=== PATIENT | female | born 1945 | race Caucasian/White ===

== ENCOUNTER 2016-11-04 17:10 | Inpatient (IN) ==
[2016-11-04] MEDS ORDERED: 0.9 % Sodium Chloride 1,000 ML IVC ONE (18:07)
[2016-11-04] MEDS ORDERED: Ondansetron ODT 4 MG TAB.RAPDIS SL ONE (18:07)
[2016-11-04] MEDS ORDERED: Ondansetron 4 MG/2 ML VIAL IVP ONE (18:07)
[2016-11-04] MEDS ORDERED: *HR* Morphine 2 MG/ML SYRINGE IVP ONE ×2 (18:14→19:08)
--- NOTE | 2016-11-04 18:17 | Emergency Department Note ---
Disposition Clinical Impression: Abdominal pain Qualifiers: Abdominal location: right upper quadrant Qualified Code(s): R10.11 - Right upper quadrant pain Disposition: Still a Patient Condition: Fair Referrals: Khanh Alonzo MD [Primary Care Provider] - Forms: Work/School Release, ED Satisfaction Letter Abdominal Pain HPI - General Chief Complaint: ED Abdominal Pain Stated Complaint: abdominal pain/flank pain Time Seen by Provider: 11/04/16 17:55 Source: patient Mode of arrival: ambulatory Limitations: no limitations Nursing Notes Reviewed: Yes Vital Signs Reviewed: Yes - History of Present Illness HPI Narrative: 71-year-old female history of CAD, hypertension, hyperlipidemia presents for evaluation of abdominal pain, nausea vomiting. Patient states symptoms started postprandial after eating little Caesars last night. Pain is located in the right upper quadrant for 3 days nor back. It is that the pain has been persistent. Patient has several episodes of emesis which appeared yellow. Patient denies any diarrhea or constipation. Patient did not take any medicine prior to arrival. Denies any chest pain first of breath. No fevers. Patient reports that she still has her gallbladder and appendix. No other symptoms. Pt Subjective Complaint: abdominal pain Onset (ago): hour(s) Consistency: intermittent Location: RUQ Pain Scale: 8 - Related Data Home Medications Medication Instructions Recorded Confirmed Aspirin 81 mg PO DAILY 03/16/15 03/16/15 Ezetimibe [Zetia] 10 mg PO 03/16/15 03/16/15 Isosorbide DInitrate [Isosorbide 20 mg PO 03/16/15 03/16/15 Dinitrate] Metoprolol [Lopressor] 100 mg PO BID 03/16/15 03/16/15 Allergies Allergy/AdvReac Type Severity Reaction Status Date / Time No Known Allergies Allergy Verified 11/04/16 17:26 All systems ED: reviewed and negative except as stated. Constitutional: Reports: as per HPI. Denies: fever Eyes: Reports: as per HPI ENT ED: Reports: as per HPI Cardiovascular: Reports: as per HPI. Denies: chest pain, palpitations Respiratory: Reports: as per HPI. Denies: dyspnea Gastrointestinal: Reports: as per HPI, abdominal pain, nausea, vomiting. Denies : diarrhea, constipation Genitourinary: Reports: as per HPI Musculoskeletal: Reports: as per HPI Integumentary: Reports: as per HPI Neurological: Reports: as per HPI Psychiatric: Reports: as per HPI Endocrine: Reports: as per HPI Hematological/Lymphatic: Reports: as per HPI Abdominal Pain PMH - Past Medical History Medical history: Reports: CHF, COPD, coronary artery disease, hyperlipidemia, hypertension, kidney stones, peripheral artery disease Female Surgical History: Reports: angioplasty/stent, knee replacement STAKE DRIVER history: Reports: no STAKE DRIVER history Psychiatric history: Reports: no psych history - Social History Smoking status: Never smoker Alcohol use: Reports: none Drug use: Reports: none Physical Exam - General Limitations: no limitations General appearance: alert, in no apparent distress, obese, other (Appears to be dry heaving.) - Head Head exam: atraumatic, normocephalic, normal inspection - Eye Eye exam: Present: normal appearance, EOMI - ENT ENT exam: normal exam, mucous membranes moist - Neck Neck exam: Present: normal inspection, trachea midline - Chest Chest inspection: Present: normal inspection. Absent: symmetric chest wall rise - Respiratory Respiratory exam: Present: normal lung sounds bilaterally. Absent: respiratory distress - Cardiovascular Cardiovascular exam: Present: regular rate, normal rhythm - Abdominal Exam Abdominal exam: Present: soft, tenderness (Moderate tenderness in the right upper quadrant.). Absent: distention, guarding, rebound - Extremities Exam Extremities exam: Present: normal inspection. Absent: pedal edema - Back Exam Back exam: Present: normal inspection. Absent: CVA tenderness (R), CVA tenderness (L) - Neurological Exam Neurological exam: Present: alert, oriented X3 - Skin Skin exam: Present: warm, dry, intact, normal color Course Course Narrative: Patient seen and examined upon arrival. Patient appears to be uncomfortable with active emesis. Patient states that symptoms started after her little Caes[employer] yesterday. Patient will get basic lab work including a lipase, troponin. Patient also get an EKG. Patient will get a CT scan pelvis without contrast. Symptomatically with IV fluids, antiemetics as well as morphine. Patient states that she is lightly with medications and will gradually titrate the pain medicine. - Reevaluation(s) Reevaluation #1: Patient will be signed out to the oncoming provider. Time: 18:50 Vital Signs Temperature 97.8 F 11/04/16 17:22 Pulse Rate 63 11/04/16 17:22 Respiratory Rate 16 11/04/16 17:22 Blood Pressure 173/73 11/04/16 17:22 O2 Sat by Pulse Oximetry 94 11/04/16 17:22 Temperature 97.8 F 11/04/16 17:22 Pulse Rate 63 11/04/16 18:12 Respiratory Rate 16 11/04/16 18:12 Blood Pressure 173/73 11/04/16 18:12 O2 Sat by Pulse Oximetry 94 11/04/16 18:12 Oxygen Delivery Oxygen Delivery Room Air Abdominal Pain - Lab Data Result diagrams: 11/04/16 18:34 11/04/16 18:34 Lab Results 11/04/16 11/04/16 11/04/16 Range/Units 18:20 18:34 18:34 WBC 9.9 (4.3-11.1) K/mcL RBC 4.66 (3.82-4.97) M/mcL Hgb 14.0 (11.5-15.4) g/dL Hct 41.8 (35.3-44.9) % MCV 89.7 (83.0-100.0) fL MCH 30.0 (28.0-33.3) pg MCHC 33.5 (31.6-35.5) g/dL RDW 13.0 (11.5-14.5) % Plt Count 176 (140-400) K/mcL MPV 9.7 (9.4-12.4) fL Immature Gran % 0.4 (0-4) % Seg Neutrophils % 79.0 % Lymphocytes % 13.9 % Monocytes % 5.9 % Eosinophils % 0.3 % Basophils % 0.5 % Neutrophils # 7.8 (1.6-8.9) K/mcL Lymphocytes # 1.4 (0.6-4.6) K/mcL Monocytes # 0.6 (0.0-1.3) K/mcL Eosinophils # 0.0 (0.0-0.6) K/mcL Basophils # 0.1 (0.0-0.2) K/mcL Immature Plt Fraction 3.5 (1.1-6.1) % Sodium 136 (136-145) mEq/L Potassium 4.0 (3.5-4.5) mEq/L Chloride 99 (98-109) mEq/L Carbon Dioxide 26 (19-29) mEq/L BUN 15 (7-20) mg/dL Creatinine 1.07 (0.57-1.11) mg/dL Est GFR ( Amer) > 60 (> 60) Est GFR (Non-Af Amer) 50 L (> 60) BUN/Creatinine Ratio 14 (6-26) Glucose 127 H (70-99) mg/dL Calculated Osmolality 284 (280-300) Lactic Acid (0.5-2.2) mmol/L Calcium 10.3 (8.6-10.8) mg/dL Total Bilirubin 0.8 (0.2-1.2) mg/dL Direct Bilirubin 0.3 (0.0-0.5) mg/dL Indirect Bilirubin 0.5 (0.0-1.2) mg/dL AST 19 (5-34) Units/L ALT 15 (0-55) Units/L Alkaline Phosphatase 126 (38-126) Units/L Troponin I (0-0.03) ng/mL Serum Total Protein 7.6 (6.0-8.3) g/dL Albumin 3.7 (3.5-5.0) g/dL Globulin 3.9 H (2.4-3.5) g/dL Albumin/Globulin Ratio 0.9 L (1.1-2.2) Lipase 37 (8-78) Units/L Urine Color Yellow (Yellow) Urine Clarity Cloudy A (Clear) Urine pH 7.5 (5.0-8.0) pH Units Ur Specific [place] 1.026 H (1.010-1.025) Urine Protein Trace (Neg-Trace) mg/dL Urine Glucose (UA) Normal (Normal) mg/dL Urine Ketones Trace H (Negative) mg/dL Urine Blood Negative (Negative) Urine Nitrite Negative (Negative) Urine Bilirubin Negative (Negative) Urine Urobilinogen Normal (Normal) mg/dL Ur Leukocyte Esterase Negative (Negative) Urine Microscopic RBC 0-3 (0-3) per hpf Urine Microscopic WBC 0-3 (0-3) per hpf Ur Squamous Epith Cells Many H (None-Few) per lpf Urine Bacteria Moderate H (None-Few) per hpf Hyaline Casts None Seen (None-Few) per lpf Ur Culture Indicated? NO (NO) 11/04/16 11/04/16 Range/Units 18:34 18:34 WBC (4.3-11.1) K/mcL RBC (3.82-4.97) M/mcL Hgb (11.5-15.4) g/dL Hct (35.3-44.9) % MCV (83.0-100.0) fL MCH (28.0-33.3) pg MCHC (31.6-35.5) g/dL RDW (11.5-14.5) % Plt Count (140-400) K/mcL MPV (9.4-12.4) fL Immature Gran % (0-4) % Seg Neutrophils % % Lymphocytes % % Monocytes % % Eosinophils % % Basophils % % Neutrophils # (1.6-8.9) K/mcL Lymphocytes # (0.6-4.6) K/mcL Monocytes # (0.0-1.3) K/mcL Eosinophils # (0.0-0.6) K/mcL Basophils # (0.0-0.2) K/mcL Immature Plt Fraction (1.1-6.1) % Sodium (136-145) mEq/L Potassium (3.5-4.5) mEq/L Chloride (98-109) mEq/L Carbon Dioxide (19-29) mEq/L BUN (7-20) mg/dL Creatinine (0.57-1.11) mg/dL Est GFR ( Amer) (> 60) Est GFR (Non-Af Amer) (> 60) BUN/Creatinine Ratio (6-26) Glucose (70-99) mg/dL Calculated Osmolality (280-300) Lactic Acid 2.1 (0.5-2.2) mmol/L Calcium (8.6-10.8) mg/dL Total Bilirubin (0.2-1.2) mg/dL Direct Bilirubin (0.0-0.5) mg/dL Indirect Bilirubin (0.0-1.2) mg/dL AST (5-34) Units/L ALT (0-55) Units/L Alkaline Phosphatase (38-126) Units/L Troponin I 0.00 (0-0.03) ng/mL Serum Total Protein (6.0-8.3) g/dL Albumin (3.5-5.0) g/dL Globulin (2.4-3.5) g/dL Albumin/Globulin Ratio (1.1-2.2) Lipase (8-78) Units/L Urine Color (Yellow) Urine Clarity (Clear) Urine pH (5.0-8.0) pH Units Ur Specific [place] (1.010-1.025) Urine Protein (Neg-Trace) mg/dL Urine Glucose (UA) (Normal) mg/dL Urine Ketones (Negative) mg/dL Urine Blood (Negative) Urine Nitrite (Negative) Urine Bilirubin (Negative) Urine Urobilinogen (Normal) mg/dL Ur Leukocyte Esterase (Negative) Urine Microscopic RBC (0-3) per hpf Urine Microscopic WBC (0-3) per hpf Ur Squamous Epith Cells (None-Few) per lpf Urine Bacteria (None-Few) per hpf Hyaline Casts (None-Few) per lpf Ur Culture Indicated? (NO) - EKG Data EKG attestation: Yes I reviewed and interpreted this EKG. EKG shows normal: sinus rhythm Rate: normal Rhythm: NSR T wave inversions noted in: v1 Ectopy: PVC Interpretation: no acute changes, nonspecific ST-T wave changes Giovanna - Giovanna Situation: Demographics Background: Presenting Complaint Assessment: Vital Signs, Course and respsone to treatment, Patient/Family Expectation Recommendation: Barrier(s) to disposition, Recommendation based on pending studies, treatments, or consults Giovanna Report Given to: Dr. Lydia Heredia Repor Time: 18:50 Attestation Statement - Attestation Attestation: I examined this patient and my medical decision-making was reviewed with the CENTER DIRECTOR/PA/Advanced Practice Nurse/Resident Physician. I agree with the documented findings, disposition and treatment plan as described except to the extent set forth below. A pappas to ED with right upper quadrant abdominal pain. Onset around midnight. Patient states she ate pizza last night. States normally she does not eat greasy food. Concern for gallbladder issue. Nausea and vomiting as well. No fever. On exam she is in no distress with right upper quadrant tenderness. Plan. Labs CT. Pain control and nausea meds. Will be signed out to shift supervisor rn.
[2016-11-04 18:34] LABS: Bilirubin,Urine Negative (Negative); Blood,Urine Negative (Negative); Clarity,Urine Cloudy (Clear); Color,Urine Yellow (Yellow); Glucose,Urine (UA) Normal (Normal); Ketones,Urine Trace mg/dL (Negative); Leukocyte Esterase,Urine Negative (Negative); Nitrite,Urine Negative (Negative); PH,Urine 7.5 pH Units (5.0-8.0); Protein,Urine Trace mg/dL (Neg-Trace); Specific Gravity,Urine 1.026 (1.010-1.025); Urobilinogen,Urine Normal (Normal)
[2016-11-04 18:35] LABS: Bacteria,Urine Moderate per hpf (None-Few); Hyaline Casts,Urine None Seen per lpf (None-Few); RBC,Urine 0-3 per hpf (0-3); Squamous Epithelial Cell,Urine Many per lpf (None-Few); WBC,Urine 0-3 per hpf (0-3)
[2016-11-04 18:43] LABS: Basophils # 0.1 K/mcL (0.0-0.2); Basophils % 0.5 %; Eosinophils % 0.3 %; Hematocrit 41.8 % (35.3-44.9); Immature Granulocytes % 0.4 % (0-4); Immature Platelets 3.5 % (1.1-6.1); Lymphocytes # 1.4 K/mcL (0.6-4.6); Lymphocytes % 13.9 %; Mean Corpuscular HGB Conc 33.5 g/dL (31.6-35.5); Mean Corpuscular Volume 89.7 fL (83.0-100.0); Mean Platelet Volume 9.7 fL (9.4-12.4); Monocytes # 0.6 K/mcL (0.0-1.3); Monocytes % 5.9 %; Neutrophils # 7.8 K/mcL (1.6-8.9); Platelet Count 176 K/mcL (140-400); Red Blood Count 4.66 M/mcL (3.82-4.97)
[2016-11-04 18:58] LABS: Alanine Aminotransferase 15 Units/L (0-55); Albumin 3.7 g/dL (3.5-5.0); Albumin/Globulin Ratio 0.9 (1.1-2.2); Alkaline Phosphatase 126 Units/L (38-126); Aspartate Amino Transferase 19 Units/L (5-34); BUN/Creatinine Ratio 14 (6-26); Bilirubin,Direct 0.3 mg/dL (0.0-0.5); Bilirubin,Indirect 0.5 mg/dL (0.0-1.2); Bilirubin,Total 0.8 mg/dL (0.2-1.2); Blood Urea Nitrogen 15 mg/dL (7-20); Calcium 10.3 mg/dL (8.6-10.8); Carbon Dioxide 26 mEq/L (19-29); Chloride 99 mEq/L (98-109); Globulin 3.9 g/dL (2.4-3.5); Glucose 127 mg/dL (70-99); Lipase 37 Units/L (8-78); Osmolality,Calculated 284 (280-300); Sodium 136 mEq/L (136-145); Total Protein 7.6 g/dL (6.0-8.3); eGFR For African Americans > 60 (> 60); eGFR For Non-African Americans 50 (> 60)
--- NOTE | 2016-11-04 19:13 | Emergency Department Note ---
Disposition Clinical Impression: Acute cholecystitis Abdominal pain Qualifiers: Abdominal location: right upper quadrant Qualified Code(s): R10.11 - Right upper quadrant pain Disposition: Admitted As Inpatient Condition: Fair Referrals: Khanh Alonzo MD [Primary Care Provider] - Forms: ED Satisfaction Letter, Work/School Release Time of Disposition: 19:21 General Adult HPI - General Chief complaint: ED Abdominal Pain Stated complaint: abdominal pain/flank pain Time Seen by Provider: 11/04/16 17:55 Source: patient Mode of arrival: ambulatory Limitations: no limitations - History of Present Illness Pain Scale: 8 - Related Data Home Medications Medication Instructions Recorded Confirmed Aspirin 81 mg PO DAILY 03/16/15 03/16/15 Ezetimibe [Zetia] 10 mg PO 03/16/15 03/16/15 Isosorbide DInitrate [Isosorbide 20 mg PO 03/16/15 03/16/15 Dinitrate] Metoprolol [Lopressor] 100 mg PO BID 03/16/15 03/16/15 Allergies Allergy/AdvReac Type Severity Reaction Status Date / Time No Known Allergies Allergy Verified 11/04/16 17:26 Constitutional: Reports: as per HPI. Denies: fever Eyes: Reports: as per HPI ENT ED: Reports: as per HPI Cardiovascular: Reports: as per HPI. Denies: chest pain, palpitations Respiratory: Reports: as per HPI. Denies: dyspnea Gastrointestinal: Reports: as per HPI, abdominal pain, nausea, vomiting. Denies : diarrhea, constipation Genitourinary: Reports: as per HPI Musculoskeletal: Reports: as per HPI Integumentary: Reports: as per HPI Neurological: Reports: as per HPI Psychiatric: Reports: as per HPI Endocrine: Reports: as per HPI Hematological/Lymphatic: Reports: as per HPI Past Medical History - Past Medical History Medical history: Reports: CHF, COPD, coronary artery disease, hyperlipidemia, hypertension, kidney stones, peripheral artery disease Surgical history: Reports: coronary bypass (CABG), hysterectomy, knee replacement Psychiatric history: Reports: no psych history ORDER ANALYST history: Reports: no ORDER ANALYST history - Social History Smoking Status: Never smoker Smokeless Tobacco Status: No Alcohol use: Reports: none Drug use: Reports: none Physical Exam - General Limitations: no limitations General appearance: alert, in no apparent distress, obese, other (Appears to be dry heaving.) Course Vital Signs Temperature 97.8 F 11/04/16 17:22 Pulse Rate 63 11/04/16 17:22 Respiratory Rate 16 11/04/16 17:22 Blood Pressure 173/73 11/04/16 17:22 O2 Sat by Pulse Oximetry 94 11/04/16 17:22 Temperature 97.8 F 11/04/16 17:22 Pulse Rate 63 11/04/16 18:12 Respiratory Rate 16 11/04/16 18:12 Blood Pressure 173/73 11/04/16 18:12 O2 Sat by Pulse Oximetry 94 11/04/16 18:12 Oxygen Delivery Oxygen Delivery Room Air Medical Decision Making - Medical Records Medical records reviewed: Yes I reviewed the patient's medical records. - Lab Data Lab results reviewed: Yes I reviewed the patient's lab results. Result diagrams: 11/04/16 18:34 11/04/16 18:34 Lab Results 11/04/16 11/04/16 11/04/16 Range/Units 18:20 18:34 18:34 WBC 9.9 (4.3-11.1) K/mcL RBC 4.66 (3.82-4.97) M/mcL Hgb 14.0 (11.5-15.4) g/dL Hct 41.8 (35.3-44.9) % MCV 89.7 (83.0-100.0) fL MCH 30.0 (28.0-33.3) pg MCHC 33.5 (31.6-35.5) g/dL RDW 13.0 (11.5-14.5) % Plt Count 176 (140-400) K/mcL MPV 9.7 (9.4-12.4) fL Immature Gran % 0.4 (0-4) % Seg Neutrophils % 79.0 % Lymphocytes % 13.9 % Monocytes % 5.9 % Eosinophils % 0.3 % Basophils % 0.5 % Neutrophils # 7.8 (1.6-8.9) K/mcL Lymphocytes # 1.4 (0.6-4.6) K/mcL Monocytes # 0.6 (0.0-1.3) K/mcL Eosinophils # 0.0 (0.0-0.6) K/mcL Basophils # 0.1 (0.0-0.2) K/mcL Immature Plt Fraction 3.5 (1.1-6.1) % Sodium 136 (136-145) mEq/L Potassium 4.0 (3.5-4.5) mEq/L Chloride 99 (98-109) mEq/L Carbon Dioxide 26 (19-29) mEq/L BUN 15 (7-20) mg/dL Creatinine 1.07 (0.57-1.11) mg/dL Est GFR ( Amer) > 60 (> 60) Est GFR (Non-Af Amer) 50 L (> 60) BUN/Creatinine Ratio 14 (6-26) Glucose 127 H (70-99) mg/dL Calculated Osmolality 284 (280-300) Lactic Acid (0.5-2.2) mmol/L Calcium 10.3 (8.6-10.8) mg/dL Total Bilirubin 0.8 (0.2-1.2) mg/dL Direct Bilirubin 0.3 (0.0-0.5) mg/dL Indirect Bilirubin 0.5 (0.0-1.2) mg/dL AST 19 (5-34) Units/L ALT 15 (0-55) Units/L Alkaline Phosphatase 126 (38-126) Units/L Troponin I (0-0.03) ng/mL Serum Total Protein 7.6 (6.0-8.3) g/dL Albumin 3.7 (3.5-5.0) g/dL Globulin 3.9 H (2.4-3.5) g/dL Albumin/Globulin Ratio 0.9 L (1.1-2.2) Lipase 37 (8-78) Units/L Urine Color Yellow (Yellow) Urine Clarity Cloudy A (Clear) Urine pH 7.5 (5.0-8.0) pH Units Ur Specific [place] 1.026 H (1.010-1.025) Urine Protein Trace (Neg-Trace) mg/dL Urine Glucose (UA) Normal (Normal) mg/dL Urine Ketones Trace H (Negative) mg/dL Urine Blood Negative (Negative) Urine Nitrite Negative (Negative) Urine Bilirubin Negative (Negative) Urine Urobilinogen Normal (Normal) mg/dL Ur Leukocyte Esterase Negative (Negative) Urine Microscopic RBC 0-3 (0-3) per hpf Urine Microscopic WBC 0-3 (0-3) per hpf Ur Squamous Epith Cells Many H (None-Few) per lpf Urine Bacteria Moderate H (None-Few) per hpf Hyaline Casts None Seen (None-Few) per lpf Ur Culture Indicated? NO (NO) 11/04/16 11/04/16 Range/Units 18:34 18:34 WBC (4.3-11.1) K/mcL RBC (3.82-4.97) M/mcL Hgb (11.5-15.4) g/dL Hct (35.3-44.9) % MCV (83.0-100.0) fL MCH (28.0-33.3) pg MCHC (31.6-35.5) g/dL RDW (11.5-14.5) % Plt Count (140-400) K/mcL MPV (9.4-12.4) fL Immature Gran % (0-4) % Seg Neutrophils % % Lymphocytes % % Monocytes % % Eosinophils % % Basophils % % Neutrophils # (1.6-8.9) K/mcL Lymphocytes # (0.6-4.6) K/mcL Monocytes # (0.0-1.3) K/mcL Eosinophils # (0.0-0.6) K/mcL Basophils # (0.0-0.2) K/mcL Immature Plt Fraction (1.1-6.1) % Sodium (136-145) mEq/L Potassium (3.5-4.5) mEq/L Chloride (98-109) mEq/L Carbon Dioxide (19-29) mEq/L BUN (7-20) mg/dL Creatinine (0.57-1.11) mg/dL Est GFR ( Amer) (> 60) Est GFR (Non-Af Amer) (> 60) BUN/Creatinine Ratio (6-26) Glucose (70-99) mg/dL Calculated Osmolality (280-300) Lactic Acid 2.1 (0.5-2.2) mmol/L Calcium (8.6-10.8) mg/dL Total Bilirubin (0.2-1.2) mg/dL Direct Bilirubin (0.0-0.5) mg/dL Indirect Bilirubin (0.0-1.2) mg/dL AST (5-34) Units/L ALT (0-55) Units/L Alkaline Phosphatase (38-126) Units/L Troponin I 0.00 (0-0.03) ng/mL Serum Total Protein (6.0-8.3) g/dL Albumin (3.5-5.0) g/dL Globulin (2.4-3.5) g/dL Albumin/Globulin Ratio (1.1-2.2) Lipase (8-78) Units/L Urine Color (Yellow) Urine Clarity (Clear) Urine pH (5.0-8.0) pH Units Ur Specific [place] (1.010-1.025) Urine Protein (Neg-Trace) mg/dL Urine Glucose (UA) (Normal) mg/dL Urine Ketones (Negative) mg/dL Urine Blood (Negative) Urine Nitrite (Negative) Urine Bilirubin (Negative) Urine Urobilinogen (Normal) mg/dL Ur Leukocyte Esterase (Negative) Urine Microscopic RBC (0-3) per hpf Urine Microscopic WBC (0-3) per hpf Ur Squamous Epith Cells (None-Few) per lpf Urine Bacteria (None-Few) per hpf Hyaline Casts (None-Few) per lpf Ur Culture Indicated? (NO) - Radiology Data Radiology results reviewed: Yes I reviewed the patient's radiology results. Attestation Statement - Attestation Attestation: Care assumed from Dr. Kirkland pending labs, CT, reevaluation. Patient had presented with right upper quadrant pain after eating pizza last night. She states her pain is returning. She appears in no acute distress. Labs reviewed by me. CT shows acute cholecystitis. Call placed to Dr. Escobar, surgeon configuration analyst 19:15: Case was discussed with Dr. Escobar. The plan is to admit to the medicine service with his service to consult.
[2016-11-04 19:52] LABS: INR 1.2; Prothrombin Time 12.8 Seconds (9.4-12.1)
[2016-11-04] MEDS ORDERED: Naloxone 0.4 MG/ML INJ IVP PRN (21:35)
[2016-11-04] MEDS ORDERED: Ondansetron 4 MG/2 ML VIAL IVP PRN (21:37)
[2016-11-04] MEDS: 0.9 % Sodium Chloride 1,000 ML IVC SCH (21:49)
[2016-11-04] MEDS: *HR* HYDROmorphone (PF) 1 MG/ML SYRINGE IVP PRN (21:50)
--- NOTE | 2016-11-04 21:53 | Internal Med History&Physical ---
Date of Encounter: 11/04/16 Time of Encounter: 21:40 Assessment and Plan (1) Acute cholecystitis Current visit: Yes Status: Acute 1 patient experiencing right upper quadrant pain nose leukocytosis lactate is [address] scan suggestive cholecystitis. ER physician spoke with Dr. Escobar who will see patient in a.m. per consult 2 will continue patient nothing by mouth status 3 IV fluids overnight 4.Dilaudid for pain 5 and Zofran for nausea 6 we will give Zosyn IV (2) Coronary artery disease Current visit: No Status: Chronic 1 present patient nothing by mouth we will continue statin aspirin and beta sharona once able to take oral medications Qualifiers: Coronary Disease-Associated Artery/Lesion type: bypass graft [place] vs. transplanted heart: [place] heart Associated angina: without angina Qualified Code(s): I25.810 - Atherosclerosis of coronary artery bypass graft(s) without angina pectoris (3) Hypertension Current visit: Yes Status: Chronic 1 presently nothing by mouth we will resume home medications once able to take orals 2 monitor blood pressure goals maintain systolic less than 140 Qualifiers: Hypertension type: essential hypertension Qualified Code(s): I10 - Essential (primary) hypertension (4) COPD (chronic obstructive pulmonary disease) Current visit: No Status: Chronic 1xygen as needed titrated to maintain SPO2 greater than 92% 2 bronchodilators as needed Qualifiers: COPD type: emphysema Emphysema type: unspecified Qualified Code(s): J43.9 - Emphysema, unspecified (5) DVT prophylaxis Current visit: Yes Status: Acute sCDs, [facility] Internal Medicine - H&P: HPI Chief complaint: abd pain Admitted From: Emergency Dept Plans for Post Hospital Care: Home History of present illness: Ms. Andino is a 71 year old female past medical history of coronary artery disease with CABG hypertension hyperlipidemia COPD non-oxygen dependent. According to the patient approximately 10 PM last night she ate a pizza and 2 hours later she began to experience abdominal pain and nausea. She described the pain 8/10 constant, occurring in right upper quadrant radiating to right chest, shoulder blades as well to pelvic region. Pain was wavelike, dull peaking to a sharp pain. She states she felt like her abdomen was distended and was full of gas however she was unable to belch or pass any flatus. She denies any fevers or diarrhea shortness of breath. Prior to this incident patient was at her normal state of health She presented to the ER with the above complaints. Upon arrival patient did have several episodes of emesis that were yellow in color. Lab work was obtained there was no leukocytosis lactate was [address] scan of abdomen suggestive of cholecystitis. Patient was given pain medications and antiemetics and IV fluids ER physician did speak with Dr. Escobar requested patient be admitted to medical services and surgical consult. Presently patient appears to be in pain. She complains of right upper quadrant pain. She feels that the morphine helped but did not last very long. Upon assessment patient's abdomen is tender right upper quadrant. Lung sounds are clear heart sounds S1-S2 with no rubs, gallops or murmurs noted no lower extreme edema. She is hemodynamically stable. I reviewed this case with agrees with plan. Past Med Surg Social Fam HX - Past Medical History Medical history: CHF, COPD, coronary artery disease, hyperlipidemia, hypertension, kidney stones, peripheral artery disease Psychiatric history: no psych history - Past Surgical History Surgical History: coronary bypass (CABG), hysterectomy, knee replacement - Social History Smoking Status: Never smoker Smokeless Tobacco Status: No Alcohol use: none Drug use: none - Family History Mother Living Status: Cause of : Stroke Father Living Status: Cause of : Cancer Internal Medicine - H&P: Meds Aspirin 81 mg PO DAILY 03/16/15 [History] Ezetimibe [Zetia] 10 mg PO 03/16/15 [History] Isosorbide DInitrate [Isosorbide Dinitrate] 20 mg PO 03/16/15 [History] Metoprolol [Lopressor] 100 mg PO BID 03/16/15 [History] Allergies No Known Allergies Allergy (Verified 11/04/16 17:26) All Systems PM: A 10-system review of systems was performed and is negative for pertinent findings except as documented above in the HPI. - Constitutional Constitutional: no chills, no fever(s), no night sweats - EENT Eyes: no change in vision, no discharge, no pain, no photophobia Nose, mouth and throat: no dysphagia, no nasal discharge, no neck pain, no sore throat - Cardiovascular Cardiovascular ROS IM: no chest pain, no diaphoresis, no dyspnea, no lightheadedness, no palpitations, no syncope - Respiratory Respiratory: no cough, no dyspnea, no wheezing, no excessive phlegm production - Gastrointestinal Gastrointestinal: abdominal pain, bloating, nausea, vomiting - Genitourinary Genitourinary: no change in urinary stream, no dysuria, no flank pain, no hematuria - Musculoskeletal Musculoskeletal ROS IM: no numbness, no tingling - Integumentary Integumentary IM: no rash, no unusual bruising - Neurological Neurological ROS: no confusion, no convulsions, no focal weakness, no numbness, no tingling, no tremor(s) - Hematologic/Lymphatic Hematologic/Lymphatic: no easy bruising - Constitutional Vitals: Temp Pulse Resp BP Pulse Ox 98.3 F 61 18 155/78 93 11/04/16 20:27 11/04/16 20:27 11/04/16 20:27 11/04/16 20:27 11/04/16 20:27 General appearance: Present: A&O X 3 - Head Head exam: Present: atraumatic, normocephalic - Eye Eye exam: Present: PERRL, conjuntiva pink, sclera anicteric Pupils: Present: PERRL - Neck Neck exam general surgery: Present: supple, trachea midline. Absent: lymphadenopathy - Respiratory Respiratory exam: Present: CTAB. Absent: accessory muscle use, rales, rhonchi, wheezes - Cardiovascular Cardiovascular exam: Present: RRR, +S1, +S2. Absent: diastolic murmur, gallop, rubs, systolic murmur - GI/Abdominal GI/Abdominal exam: Present: guarding, normal bowel sounds, soft, tenderness, no peritoneal signs. Absent: distended - Extremities Exam Extremities exam: Present: warm, radial pulses palpable and symetrical. Absent : calf tenderness, cyanotic, pedal edema - Neurological Exam Neurological exam: Present: CN II-XII intact, oriented X3, no focal deficits. Absent: pronater drift, facial droop, speech deficit - Skin Skin exam: Present: dry, intact Internal Med - H&P Results - Labs CBC & Chem 7: 11/04/16 18:34 11/04/16 18:34 - Diagnostic Studies Other Images Additional comments: Abdomen/Pelvis CT 11/04/16 18:14 IMPRESSION: Inflammatory stranding is seen about the gallbladder, suggestive of cholecystitis. Material within the gallbladder lumen is of diffuse increased density, typically sludge, less commonly hemorrhage. Right upper quadrant ultrasound is suggested for further evaluation. Diverticulosis, without aletha diverticulitis. D/ / Cole Dove MD / Cole Dove MD Interpreting Provider: Cole Dove MD
[2016-11-04] MEDS ORDERED: Ipratropium/Albuterol Neb 3 ML IH PRN (22:20)
[2016-11-05] MEDS: Piperacillin/Tazobactam 3.375 GM in D5% in Water (Mini-Bag+) 100 ML IVPB SCH ×4 (00:17→23:37)
[2016-11-05] MEDS: *HR* Metoprolol 5 MG/5 ML VIAL IVP SCH ×2 (00:18→05:45)
[2016-11-05 01:07] LABS: Basophils % 0.2 %; Hematocrit 39.6 % (35.3-44.9); Immature Granulocytes % 0.2 % (0-4); Lymphocytes # 0.9 K/mcL (0.6-4.6); Mean Corpuscular HGB Conc 32.8 g/dL (31.6-35.5); Mean Corpuscular Hemoglobin 29.7 pg (28.0-33.3); Mean Corpuscular Volume 90.6 fL (83.0-100.0); Monocytes # 0.4 K/mcL (0.0-1.3); Monocytes % 4.5 %; Neutrophils # 8.3 K/mcL (1.6-8.9); Platelet Count 146 K/mcL (140-400); Red Blood Count 4.37 M/mcL (3.82-4.97); Red Cell Distribution Width 12.8 % (11.5-14.5); Segmented Neutrophils % 86.1 %
[2016-11-05 01:20] LABS: BUN/Creatinine Ratio 14 (6-26); Blood Urea Nitrogen 14 mg/dL (7-20); Calcium 9.1 mg/dL (8.6-10.8); Carbon Dioxide 25 mEq/L (19-29); Chloride 100 mEq/L (98-109); Glucose 159 mg/dL (70-99); Magnesium 1.7 mg/dL (1.6-2.6); Osmolality,Calculated 278 (280-300); Phosphorous 4.1 mg/dL (2.3-4.7); Sodium 132 mEq/L (136-145); eGFR For African Americans > 60 (> 60); eGFR For Non-African Americans 56 (> 60)
--- NOTE | 2016-11-05 03:45 | Event Note ---
Date of Encounter: 11/04/16 Time of Encounter: 22:30 Patient seen and evaluated along with [facility]; agree with the detailed history, assessment and plan in [facility]'s H&P, except to the extent set forth below- 71 year old female with no h/o- gallstones/biliary colic in the past, presents with sudden onset of RUQ abdominal pain, that started after eating a couple of pizza slices, last night. CT abdomen/pelvis shows possible cholecystitis and gall-bladder sludge. Patient seen and examined at bedside; reports right upper abdominal pain, slightly drowsy from pain meds. Awake, oriented. Abdomen- obese, soft, tenderness in RUQ with voluntary guarding Chest - S1, S2 heard; lungs are clear to auscultation B/L Labs reviewed- lactic acid WNL RUQ abdominal pain- biliary colic vs acute cholecystitis. Surgery consulted by ER, full evaluation and consult to follow. Keep NPO for now, start IV hydration and pain control with PRN IV Dilaudid. RUQ U/S to evaluate for gallstones and acute cholecystitis. Supportive care. Will start IV Zosyn empirically in anticipation of surgery. Hold ASA for now.
[2016-11-05] MEDS: *HR* HYDROmorphone (PF) 1 MG/ML SYRINGE IVP PRN ×5 (03:54→23:39)
--- NOTE | 2016-11-05 06:56 | General Surgery Consult Note ---
Date of Encounter: 11/05/16 Time of Encounter: 06:56 Assessment and Plan (1) Acute cholecystitis Current Visit: Yes Status: Acute I explained to the patient that I personally reviewed the CT scan images and I will actually review the images with radiologist due to the abnormal density of the gallbladder. I do agree with IV fluid and IV antibiotics. I think clears woudl be appropriate and if we can continue to help decrease the pain which will likely help decrease the inflammation I think it would be appropriate to consider a laparoscopic cholecystectomy within the next 24 hours. Discussed with the patient and family and they agree to the above plan. History of Present Illness Consult date: 11/05/16 Reason for consult: abdominal pain (Right upper abdominal pain) Requesting physician: Derrick Seth History of present illness: The patient is a 71-year-old female with a past medical history significant for coronary artery disease, COPD, and hypertension presents to [facility] with a 2 day history of right upper quadrant abdominal pain symptoms. She states that the pain was sharp and continuous in nature and was associated with nausea and vomiting. She states she has not had pain like this in the past and denies any diarrhea or constipation symptoms. She presented to the emergency room and a CT CT scan was performed which demonstrated fat stranding around the gallbladder consistent with acute cholecystitis. Past Med Surg Social Fam HX - Past Medical History Medical history: CHF, COPD, coronary artery disease, hyperlipidemia, hypertension, kidney stones, peripheral artery disease Psychiatric history: no psych history - Past Surgical History Surgical History: coronary bypass (CABG), hysterectomy, knee replacement - Social History Smoking Status: Never smoker Smokeless Tobacco Status: No Alcohol use: none Drug use: none - Family History Mother Living Status: Cause of : Stroke Father Living Status: Cause of : Cancer Medications and Allergies Aspirin 81 mg PO DAILY 03/16/15 [History] Ezetimibe [Zetia] 10 mg PO 03/16/15 [History] Isosorbide DInitrate [Isosorbide Dinitrate] 20 mg PO 03/16/15 [History] Metoprolol [Lopressor] 100 mg PO BID 03/16/15 [History] Allergies No Known Allergies Allergy (Verified 11/04/16 17:26) Review of Systems All systems PM: A 10-system review of systems was performed and is negative for pertinent findings except as documented above in the HPI. General Surgery Exam Initial Vital Signs Temp Pulse Resp BP Pulse Ox 97.8 F 63 16 173/73 94 11/04/16 17:22 11/04/16 17:22 11/04/16 17:22 11/04/16 17:22 11/04/16 17:22 - General physical appearance well nourished (Mild distress) - Eyes PERRL, normal ocular movement - Respiratory normal expansion, normal respiratory effort - Cardiovascular Cardiovascular exam: Present: RRR, no murmurs/rubs/gallops - Abdomen Abdomen general surgery: Present: bowel sounds present, soft, tender (Pain with palpation of the RUQ. ) - Neurologic Present: CN 2-12 grossly intact - Musculoskeletal Present: other (No clubbing, cyanosis, or edema) - Psychiatric Psychiatric general surgery: Present: A&Ox3 Exam Initial Vital Signs Temp Pulse Resp BP Pulse Ox 97.8 F 63 16 173/73 94 11/04/16 17:22 11/04/16 17:22 11/04/16 17:22 11/04/16 17:22 11/04/16 17:22 Results - Labs 11/05/16 00:22 11/05/16 00:22 Abnormal lab results PT 12.8 Seconds (9.4-12.1) H 11/04/16 19:25 Sodium 132 mEq/L (136-145) L 11/05/16 00:22 Est GFR (Non-Af Amer) 56 (> 60) L 11/05/16 00:22 Glucose 159 mg/dL (70-99) H 11/05/16 00:22 Calculated Osmolality 278 (280-300) L 11/05/16 00:22 Globulin 3.9 g/dL (2.4-3.5) H 11/04/16 18:34 Albumin/Globulin Ratio 0.9 (1.1-2.2) L 11/04/16 18:34 Urine Clarity Cloudy (Clear) A 11/04/16 18:20 Ur Specific [place] 1.026 (1.010-1.025) H 11/04/16 18:20 Urine Ketones Trace mg/dL (Negative) H 11/04/16 18:20 Ur Squamous Epith Cells Many per lpf (None-Few) H 11/04/16 18:20 Urine Bacteria Moderate per hpf (None-Few) H 11/04/16 18:20 Diabetes panel 11/05/16 Range/Units 00:22 Sodium 132 L (136-145) mEq/L Potassium 4.0 (3.5-4.5) mEq/L Chloride 100 (98-109) mEq/L Carbon Dioxide 25 (19-29) mEq/L BUN 14 (7-20) mg/dL Creatinine 0.98 (0.57-1.11) mg/dL Glucose 159 H (70-99) mg/dL Calcium 9.1 (8.6-10.8) mg/dL Calcium panel 11/05/16 11/05/16 Range/Units 00:22 00:22 Calcium 9.1 (8.6-10.8) mg/dL Phosphorus 4.1 (2.3-4.7) mg/dL Pituitary panel 11/05/16 Range/Units 00:22 Sodium 132 L (136-145) mEq/L Potassium 4.0 (3.5-4.5) mEq/L Chloride 100 (98-109) mEq/L Carbon Dioxide 25 (19-29) mEq/L BUN 14 (7-20) mg/dL Creatinine 0.98 (0.57-1.11) mg/dL Glucose 159 H (70-99) mg/dL Calcium 9.1 (8.6-10.8) mg/dL Adrenal panel 11/05/16 Range/Units 00:22 Sodium 132 L (136-145) mEq/L Potassium 4.0 (3.5-4.5) mEq/L Chloride 100 (98-109) mEq/L Carbon Dioxide 25 (19-29) mEq/L BUN 14 (7-20) mg/dL Creatinine 0.98 (0.57-1.11) mg/dL Glucose 159 H (70-99) mg/dL Calcium 9.1 (8.6-10.8) mg/dL All other labs normal. - Imaging CT scan - abdomen: report reviewed, image reviewed (CT scan showing evidence of inflammation around the gallbladder. The density of the gallbladder is the same as that of the liver.) Consult Discharge Plan - Plan Referrals: Khanh Alonzo MD [Primary Care Provider] -
[2016-11-05] MEDS: 0.9 % Sodium Chloride 1,000 ML IVC SCH ×2 (09:00→20:06)
[2016-11-05] MEDS ORDERED: Acetaminophen 325 MG TABLET PO PRN (11:12)
--- NOTE | 2016-11-05 11:12 | Internal Med Progress Note ---
Date of Encounter: 11/05/16 Time of Encounter: 11:10 - Assessment and plan (1) Acute cholecystitis Current Visit: Yes Status: Acute Assessment and plan: Continue IVF,Zosyn, antiemetics, pain control Clear liquid diet Follow surgery eval for possible laparoscopic cholecystectomy a.m NPO from [place] (2) Coronary artery disease Current Visit: Yes Status: Chronic Assessment and plan: Continue home meds, except ASA Qualifiers: Coronary Disease-Associated Artery/Lesion type: bypass graft [place] vs. transplanted heart: [place] heart Associated angina: without angina Qualified Code(s): I25.810 - Atherosclerosis of coronary artery bypass graft(s) without angina pectoris (3) Hypertension Current Visit: Yes Status: Chronic Assessment and plan: Continue home meds, hold HCTZ for now till post-op Qualifiers: Hypertension type: essential hypertension Qualified Code(s): I10 - Essential (primary) hypertension (4) COPD (chronic obstructive pulmonary disease) Current Visit: Yes Status: Chronic Assessment and plan: No symptoms/signs of exacerbation, continue to monitor O2 prn Duoneb prn Qualifiers: COPD type: emphysema Emphysema type: unspecified Qualified Code(s): J43.9 - Emphysema, unspecified (5) DVT prophylaxis Current Visit: Yes Status: Acute Assessment and plan: Lovenox SQ, hold tmrw a.m dose for surgery SCDs (6) Morbid obesity Current Visit: Yes Status: Chronic Assessment and plan: Lifestyle modification Qualifiers: Obesity type: unspecified obesity type Qualified Code(s): E66.01 - Morbid ( severe) obesity due to excess calories - Subjective Interval history: 71 F with HTN, COPD, Morbid Obesity, admitted and being managed for cholecystitis, Seen and evaluated at bedside, no new complains Surgery eval noted, for lap swapna a.m Resume home meds, continue clear liquid diet, pain control - Constitutional Vitals: Temp Pulse Resp BP Pulse Ox 98.3 F 70 18 148/73 94 11/05/16 07:41 11/05/16 07:41 11/05/16 07:41 11/05/16 07:41 11/05/16 07:41 General appearance: Present: A&O X 3, pleasant, no acute distress - Head Head exam: Present: atraumatic, normocephalic - Eye Eye exam: Present: PERRL, conjuntiva pink, sclera anicteric Pupils: Present: PERRL - Neck Neck exam general surgery: Present: supple, trachea midline. Absent: lymphadenopathy - Respiratory Respiratory exam: Present: CTAB. Absent: accessory muscle use, rales, rhonchi, wheezes - Cardiovascular Cardiovascular exam: Present: RRR, +S1, +S2. Absent: diastolic murmur, gallop, rubs, systolic murmur - GI/Abdominal GI/Abdominal exam: Present: normal bowel sounds, soft, tenderness (RUQ tenderness, Hicks's sign positive, no rebound or guarding). Absent: mass - Extremities Exam Extremities exam: Present: warm, radial pulses palpable and symetrical. Absent : calf tenderness, cyanotic, pedal edema - Neurological Exam Neurological exam: Present: alert, CN II-XII intact, oriented X3, no focal deficits. Absent: pronater drift, facial droop, speech deficit - Skin Skin exam: Present: dry, intact Internal Medicine: Result - Labs CBC & Chem 7: 11/05/16 00:22 11/05/16 00:22 Labs: Short CBC 11/05/16 Range/Units 00:22 WBC 9.7 (4.3-11.1) K/mcL Hgb 13.0 (11.5-15.4) g/dL Hct 39.6 (35.3-44.9) % Plt Count 146 (140-400) K/mcL Neutrophils # 8.3 (1.6-8.9) K/mcL BMP 11/05/16 00:22 Sodium 132 L Potassium 4.0 Chloride 100 Carbon Dioxide 25 BUN 14 Creatinine 0.98 Glucose 159 H Calcium 9.1 Cardiac Enzymes 11/05/16 11/05/16 Range/Units 00:22 05:44 Troponin I 0.01 0.00 (0-0.03) ng/mL - ABG Interpretation ABG results: PT/INR, D-dimer PT 12.8 Seconds (9.4-12.1) H 11/04/16 19:25 - Impressions Impressions Abdomen Ultrasound 11/05/16 08:00 IMPRESSION: 1. Gallbladder sludge and stones with pericholecystic fluid and mild gallbladder wall thickening. Findings may be seen in acute cholecystitis and further evaluation with nuclear medicine HIDA scan may be performed for confirmation. 2. Hepatic steatosis D/ / Kalpana Krueger MD / Kalpana Krueger MD Interpreting Provider: Kalpana Krueger MD Consult Discharge Plan - Plan Referrals: Khanh Alonzo MD [Primary Care Provider] -
[2016-11-05] MEDS: Isosorbide MONOnitrate (24 HR) 30 MG TAB.ER.24H PO SCH (12:13)
[2016-11-05] MEDS: Metoprolol 100 MG TABLET PO SCH ×2 (12:13→20:04)
--- NOTE | 2016-11-05 17:04 | Electrocardiograph Report ---
[place] [id number] Test Date: 2016-11-04 Pat Name: Gonazlo Andino Department: [id number] Room: 3A23 Gender: F Supervisor Intermediates: MSC : 1945 Requested By: Derrick Seth Order Number: [id number] Reading MD: Derrick Ndiaye Measurements Intervals [place] Rate: 71 P: 52 RI: 191 QRS: 8 QRSD: 100 T: 40 QT: 390 QTc: 412 Interpretive Statements SINUS RHYTHM WITH OCCASIONAL VENTRICULAR PREMATURE COMPLEXES Electronically Signed On 11-05-2016 17:02:59 EDT by Derrick Ndiaye
[2016-11-05] MEDS ORDERED: *HR* Enoxaparin 40 MG/0.4 ML SYRINGE SQ SCH (18:00)
--- NOTE | 2016-11-05 19:22 | Anesthesia Evaluation PreOp ---
Date of Encounter: 11/05/16 Time of Encounter: 21:55 - Past History Planned Operation: Laparoscopic Cholecystectomy Cardiac History: CHF, HTN, Hyperlipidemia, Cardiac Surgery (CABG x 2 i 2002CABG) , Cardiac Stent Pulmonary History: Former smoker (quit 20 years ago, smoked for 15 years), COPD , Snore, CAM Dx (does not use CPAP) [employer]ATE History: Denies Any Significant HX Other Medical History: Renal (kidney stones) Anesthesia History: No Prior Anesthetic Complications, Past Anesthesia Alcohol Use: none Drug use: none Medications and Allergies Aspirin 81 mg PO DAILY 03/16/15 [History] Metoprolol [Lopressor] 100 mg PO BID 03/16/15 [History] Isosorbide MONOnitrate (24 HR) [Imdur] 30 mg PO DAILY 11/05/16 [History] Naproxen Sodium [Aleve] 220 mg PO Q12H PRN 11/05/16 [History] Rosuvastatin Calcium [Rosuvastatin Calcium] 5 mg PO HS 11/05/16 [History] Vitamin B Complex 1 each PO DAILY 11/05/16 [History] hydroCHLOROthiazide [Hydrochlorothiazide] 25 mg PO DAILY 11/05/16 [History] Allergies No Known Allergies Allergy (Verified 11/04/16 17:26) - Meds/Allergy Pre-op Review Medications Reviewed: Yes Allergies Reviewed: Yes Beta Blockers on Current Med List: Yes If Beta Blockers taken, Date/Time (Last Dose taken): 11/05/2016 at 2004 Anesthesia Results - Labs 11/05/16 00:22 11/05/16 00:22 - Imaging EKG: report reviewed (11/04/2016 SR, occasional PVC's) Anesthesia Exam Height: 5'8''/1.73 m Weight: 250 lbs/113.6 kg Pain Scale: 3 Pain Scale Used: Numeric (1 - 10) - HEENT Pupil (Motor): EOMI Mallampati: II Teeth: Normal, Missing Denture Type: Upper: Complete Oral Opening: Greater than 3 - [employer] LOC: Oriented [employer]ATE Motor: Normal RUE, Normal LUE, Normal RLE, Normal LLE, Normal Face [employer] Sensory: Normal: RUE, LUE, RLE, LLE, Face - Cardiac Rhythm: Regular Murmur: None - Pulmonary Breath Sounds: bilateral Clear Respiratory Effort: Symmetrical Anesthesia Assess/Plan ASA Score: 3 Modified Kaylie Scale for Level of Consciousness: Cooperative, oriented, and tranquil Anesthetic Plan: General Monitoring Plan: Standard Monitors Recovery Plan: PACU
[2016-11-06] MEDS: *HR* HYDROmorphone (PF) 1 MG/ML SYRINGE IVP PRN (05:41)
[2016-11-06] MEDS: Isosorbide MONOnitrate (24 HR) 30 MG TAB.ER.24H PO SCH (08:18)
[2016-11-06] MEDS: Metoprolol 100 MG TABLET PO SCH ×2 (08:18→21:40)
[2016-11-06] MEDS: Piperacillin/Tazobactam 3.375 GM in D5% in Water (Mini-Bag+) 100 ML IVPB SCH ×3 (08:25→23:49)
--- NOTE | 2016-11-06 16:11 | Internal Med Progress Note ---
Date of Encounter: 11/06/16 Time of Encounter: 10:00 - Assessment and plan (1) Acute cholecystitis Current Visit: Yes Status: Acute Assessment and plan: Continue IVF,Zosyn, antiemetics, pain control Clear liquid diet Follow surgery eval Plan for laparoscopic cholecystectomy today. NPO from [place] patient is at high risk because she has a problem needed surgical intervention. (2) Coronary artery disease Current Visit: Yes Status: Chronic Assessment and plan: Continue home meds, except ASA Qualifiers: Coronary Disease-Associated Artery/Lesion type: bypass graft [place] vs. transplanted heart: [place] heart Associated angina: without angina Qualified Code(s): I25.810 - Atherosclerosis of coronary artery bypass graft(s) without angina pectoris (3) Hypertension Current Visit: Yes Status: Chronic Assessment and plan: Continue home meds, hold HCTZ for now till post-op Qualifiers: Hypertension type: essential hypertension Qualified Code(s): I10 - Essential (primary) hypertension (4) COPD (chronic obstructive pulmonary disease) Current Visit: Yes Status: Chronic Assessment and plan: No symptoms/signs of exacerbation, continue to monitor O2 prn Duoneb prn Qualifiers: COPD type: emphysema Emphysema type: unspecified Qualified Code(s): J43.9 - Emphysema, unspecified (5) DVT prophylaxis Current Visit: Yes Status: Acute Assessment and plan: Lovenox SQ, hold a.m dose for surgery SCDs - Time Spent With Patient Greater than 35 minutes - Subjective Interval history: patient is a 71-year-old female admitted for acute cholecystitis. past medical history significant for hyperlipidemia, CHF, COPD, CAD, hypertension, kidney stone, PAD. patient was seen and examined. Still complaining right upper quarter pain. Vitals are stable. surgical consult appreciated. Plan for surgery today. - Constitutional Vitals: Temp Pulse Resp BP Pulse Ox 99.3 F 96 16 105/55 91 11/06/16 15:06 11/06/16 15:06 11/06/16 15:06 11/06/16 15:06 11/06/16 15:06 General appearance: Present: A&O X 3, pleasant, no acute distress - Head Head exam: Present: atraumatic, normocephalic - Eye Eye exam: Present: PERRL, conjuntiva pink, sclera anicteric Pupils: Present: PERRL - Neck Neck exam general surgery: Present: supple, trachea midline. Absent: lymphadenopathy - Respiratory Respiratory exam: Present: CTAB. Absent: accessory muscle use, rales, rhonchi, wheezes - Cardiovascular Cardiovascular exam: Present: RRR, +S1, +S2. Absent: diastolic murmur, gallop, rubs, systolic murmur - GI/Abdominal GI/Abdominal exam: Present: normal bowel sounds, soft, tenderness (RUQ tenderness with rebound and guarding), no peritoneal signs. Absent: distended - Extremities Exam Extremities exam: Present: warm, radial pulses palpable and symetrical. Absent : calf tenderness, cyanotic, pedal edema - Neurological Exam Neurological exam: Present: CN II-XII intact, oriented X3, no focal deficits. Absent: pronater drift, facial droop, speech deficit - Skin Skin exam: Present: dry, intact Internal Medicine: Result - Labs CBC & Chem 7: 11/05/16 00:22 11/05/16 00:22 - ABG Interpretation ABG results: PT/INR, D-dimer PT 12.8 Seconds (9.4-12.1) H 11/04/16 19:25 Consult Discharge Plan - Plan Referrals: Khanh Alonzo MD [Primary Care Provider] -
[2016-11-06] MEDS ORDERED: *HR* FentaNYL (PF) 100 MCG/2 ML VIAL ONE (16:47)
[2016-11-06] MEDS ORDERED: Lidocaine -MPF 2% 2 ML VIAL ONE (16:47)
[2016-11-06] MEDS ORDERED: *HR* Propofol 200 MG/20 ML VIAL IVP ONE (16:47)
[2016-11-06] MEDS ORDERED: *HR* Midazolam HCl 2 MG/2 ML VIAL ONE (16:47)
[2016-11-06] MEDS ORDERED: *HR* Succinylcholine 200 MG/10 ML VIAL IVP ONE (16:47)
[2016-11-06] MEDS ORDERED: *HR* Rocuronium Bromide 50 MG/5 ML VIAL ONE (16:47)
[2016-11-06] MEDS ORDERED: CefOXitin 2,000 MG VIAL IVPB ONE (17:07)
[2016-11-06] MEDS ORDERED: Dexamethasone 4 MG/ML VIAL ONE (17:14)
[2016-11-06] MEDS ORDERED: Ondansetron 4 MG/2 ML VIAL ONE (17:14)
[2016-11-06] MEDS ORDERED: *HR* Morphine 2 MG/ML SYRINGE IVP PRN (17:30)
[2016-11-06] MEDS ORDERED: *HR* HYDROmorphone (PF) 1 MG/ML SYRINGE IVP PRN ×2 (17:30→19:56)
[2016-11-06] MEDS ORDERED: *HR* Promethazine 25 MG/ML VIAL IVP PRN (17:30)
[2016-11-06] MEDS ORDERED: Ondansetron 4 MG/2 ML VIAL IVP ONE (17:30)
[2016-11-06] MEDS ORDERED: *HR* Labetalol 100 MG/20 ML MDV IVP PRN (17:30)
--- NOTE | 2016-11-06 18:38 | Operative Note ---
Date of procedure: 11/06/16 Pre-op diagnosis: Acute cholecystitis Post-op diagnosis: same Procedure: 1. Laparoscopic lysis of adhesions approximately 50 minutes 2. Laparoscopic cholecystectomy Implants: Pavel drain 15FR x 1 Anesthesia: LUIS Surgeon: Bharath Escobar Chief Of Staff: Fela Valenzuela Estimated blood loss (cc): 60 Specimen: gallbladder and contents Condition: stable Disposition: PACU Procedure in Detail: Date of surgery: 11/06/16 After properly identifying the patient, the patient was brought to the operating room and placed in the supine position. After proper IV sedation was achieved followed by general endotracheal intubation, the patient's abdomen was prepped and draped in a normal sterile fashion. A timeout was performed noting the patient's name and type of procedure to be performed. A supraumbilical incision with an 11 blade scalpel was made down to the level of the rectus fascia. The rectus fascia was incised and the abdomen was entered and a 12 mm port was placed through the incision and the abdomen was insufflated with carbon dioxide. A laparoscopic camera was placed the port which showed no injury to the intra-abdominal organs upon entry. Copious amounts of adhesions from the omentum to the abdominal wall were noted in the right upper quadrant. A 5 mm right upper quadrant port was placed under direct camera visualization which was used to help dissect the adhesions away from the abdominal wall in this region to allow for better visualization of the gallbladder. Once the space was cleared away a subxiphoid 5 mm port and a right subcostal margin 5 mm port were then placed under direct camera visualization. The patient was placed in a reverse Trendelenburg position and the further dense omental adhesions were noted to the dome of the gallbladder. Additional adhesions from the gallbladder dome to the abdominal wall were noted. The subxiphoid 5 mm port was changed to a 12 mm port and a laparoscopic tissue was used to dissect some of the omental adhesions from the abdominal wall connected to the dome of the gallbladder. A combination of blood dissection and Bovie cauterization was used to help further dissect some of the omentum away from its surrounding structures in the right upper quadrant. Once this was performed the "rind" was dissected free from the dome demonstrating a green appearing dome consistent with necrosis of the gallbladder. The gallbladder also appeared erythematous in some areas and a needle decompression device was used to remove approximately 50 mL of dark appearing bile. Once this was performed the gallbladder was able to be retracted superiorly and the dense and acute appearing inflammation surrounding the infundibulum was carefully teased away with blunt dissection and Bovie cauterization. This allow for better visualization of the region was identifying the infundibulum and the cystic duct. The cystic duct was grossly dilated and carefully dissected in a circumferential fashion with the [place] dissector. The cystic artery was identified, and transected with the laparoscopic LigaSure. Because of the enlarged nature of the cystic duct the decision was made to transect this with a laparoscopic MONICA stapler. Bovie cauterization was then used to carefully dissect the gallbladder away from the gallbladder fossa. There was a bleeding identified at the level of the gallbladder fossa which was hemostatically controlled with a combination of Bovie cauterization, utilization of Surgicel, and utilization of the powdered hemostatic material. The gallbladder was carefully and completely dissected free and removed from the abdomen via an Endobag. The right upper quadrant was copiously irrigated with normal saline solution throughout and reinspection of the gallbladder fossa was made with no evidence of active bleeding. A 15-Sami Pavel drain was placed in the right upper quadrant and extruded through the 5 mm right subcostal incision site and secured with a 3-0 nylon suture. The abdomen was desufflated and all ports are then removed from the abdomen. Of note, the total time for the laparoscopic lyses of adhesions was approximately 50 minutes. The rectus fascia for the supraumbilical incision was reapproximated with a [id number] 0 Vicryl suture. The subcutaneous tissue was reapproximated with interrupted 3-0 Vicryl sutures. The remaining epidermal and dermal layers were reapproximated with 4-0 Monocryl sutures. Needle, sponge, and instrument counts were correct 2 and the incisions were covered with Steri-Strips and Band -Aids. The patient was aroused from IV sedation, extubated in the operating room without complication, and transported to the recovery room in stable condition.
[2016-11-06] MEDS ORDERED: *HR* HYDROmorphone 2 MG/ML SYRINGE ONE (18:42)
--- NOTE | 2016-11-06 19:34 | Anesthesia Evaluation Post Op ---
Date of Encounter: 11/06/16 Time of Encounter: 19:27 - Vital Signs Vital Signs: Vital Signs/O2 Sat, Most Current Temp Pulse Resp BP Pulse Ox 99.2 F 91 16 117/66 93 11/06/16 19:25 11/06/16 19:25 11/06/16 19:25 11/06/16 19:25 11/06/16 19:25 - Lungs Lungs: Clear Ascult./Percussion - Airway Airway: Non-obstructed - Cardiovascular Regular Rate - Mental Status Mental Status: Asleep with brisk response to light stimulation - Pain Pain Scale used: Numeric (1 - 10) (5) - Nausea Vomiting Nausea Vomiting: Not Present - Hydration Hydration: NPO, Has not voided - Discharge PostOp Status: Transfer Patient to floor
[2016-11-06] MEDS ORDERED: Acetaminophen 325 MG TABLET PO PRN (19:56)
[2016-11-06] MEDS ORDERED: Ipratropium/Albuterol Neb 3 ML IH PRN (19:56)
[2016-11-06] MEDS ORDERED: 0.9 % Sodium Chloride 1,000 ML IVC SCH (19:56)
[2016-11-06] MEDS ORDERED: Naloxone 0.4 MG/ML INJ IVP PRN (19:56)
[2016-11-06] MEDS ORDERED: Ondansetron 4 MG/2 ML VIAL IVP PRN (19:56)
[2016-11-07 06:28] LABS: Basophils % 0.1 %; Hematocrit 35.4 % (35.3-44.9); Immature Granulocytes % 0.5 % (0-4); Lymphocytes # 0.8 K/mcL (0.6-4.6); Lymphocytes % 6.5 %; Mean Corpuscular HGB Conc 31.9 g/dL (31.6-35.5); Mean Corpuscular Hemoglobin 29.2 pg (28.0-33.3); Mean Corpuscular Volume 91.5 fL (83.0-100.0); Mean Platelet Volume 10.8 fL (9.4-12.4); Monocytes # 0.8 K/mcL (0.0-1.3); Monocytes % 6.4 %; Neutrophils # 11.2 K/mcL (1.6-8.9); Platelet Count 144 K/mcL (140-400); Red Blood Count 3.87 M/mcL (3.82-4.97); Red Cell Distribution Width 13.5 % (11.5-14.5); Segmented Neutrophils % 86.5 %
[2016-11-07] MEDS ORDERED: Pantoprazole 40 MG VIAL IVP SCH (06:30)
[2016-11-07 06:34] LABS: Hemoglobin 11.3 g/dL (11.5-15.4)
[2016-11-07 06:50] LABS: Albumin/Globulin Ratio 0.6 (1.1-2.2); Bilirubin,Direct 0.8 mg/dL (0.0-0.5); Bilirubin,Indirect 0.4 mg/dL (0.0-1.2); Bilirubin,Total 1.2 mg/dL (0.2-1.2); Calcium 8.6 mg/dL (8.6-10.8); Globulin 3.7 g/dL (2.4-3.5); Potassium 3.4 mEq/L (3.5-4.5)
[2016-11-07 06:54] LABS: Albumin 2.3 g/dL (3.5-5.0)
[2016-11-07] MEDS: Piperacillin/Tazobactam 3.375 GM in D5% in Water (Mini-Bag+) 100 ML IVPB SCH (08:15)
[2016-11-07] MEDS: Metoprolol 100 MG TABLET PO SCH (08:15)
[2016-11-07] MEDS ORDERED: Isosorbide MONOnitrate (24 HR) 30 MG TAB.ER.24H PO SCH (09:00)
--- NOTE | 2016-11-07 09:05 | General Surgery Progress Note ---
Date of Encounter: 11/07/16 Time of Encounter: 09:03 - Assessment and Plan (1) Acute cholecystitis Current Visit: Yes Status: Acute Patient presented with signs and symptoms of acute cholecystitis. Laboratory results 11/07/16 reveal leukocytosis with left shift. White blood cell count 12.9. Elevated liver function tests include AST 132, ALT 129, alkaline phosphatase 192. Patient is postoperative day #1; laparoscopic lysis of adhesions 50 minutes, laparoscopic cholecystectomy with Pavel drain. On examination: Patient is pleasant alert and up at bedside. Minimal abdominal discomfort around drain area, no pain on palpation, no rebound, rigidity, guarding/peritoneal signs. Nonsurgical abdomen. Vital signs stable. Afebrile. Nonfocal neuro exam. Patient denies nausea, vomiting. Patient is tolerating regular diet well and has consumed all of her breakfast. She has been ambulating this morning. Patient has had a bowel movement this morning as well as flatus. A 15-[place] Pavel drain was placed in the right upper quadrant is draining serosanguineous fluid. With output of 120 mL on 11/06/16 and 70 mL today . 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 Discharge planning per hospital team. Pavel drain training with log for output TID a day or more if output requires. Plan: Patient is cleared for discharge from a surgical standpoint. Continue regular diet Continue Oral antibiotics for 5 days outpatient. Monitor fluids/salt Encourage ambulation Encourage hygiene Discharge planning per hospital team. 1. May shower today. No tub bath for 2 weeks. 2. Wash incisions with soap and water and pat dry daily. 3. No lifting more than 20 lbs for [address] when off narcotics for over 24 hours and able to react safely in the car. 5. May climb stairs. Pavel drain: -Wash around drain with soap and water in the shower and pat dry daily. - Apply 4 x 4 gauze and tape to secure daily. -Empty drain 3 times daily and as needed if full and record amount on drain record. - Bring drain record to follow up appointment. Pavel drain training and log of output BID. Please bring log with you to Follow -up with Dr. Escobar or with Miladis in 1 week. Subjective Patient reports: no new complaints, pain is less, tolerating a regular diet, voiding w/o difficulty, flatus, bowel movement, afebrile Narrative: Patient was seen and examined. She is tolerating her regular diet well and has eaten all of her breakfast. Patient states that she had gas this morning and that she has had one regular bowel movement. Patient is up to ambulation today. States that she is feeling great and is ready to go home. Patient is accompanied at bedside by her daughter. 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 State they are ready for the drain training and discharge. Objective Vital Signs - Last 8 Hours Temp Pulse Resp BP Pulse Ox 11/07/16 08:17 97 11/07/16 07:34 98.4 F 92 18 141/75 97 11/07/16 03:26 98.0 F 99 18 125/67 92 Intake and Output 11/06/16 11/07/16 11/07/16 23:59 07:59 15:59 Intake Total 0 / 0 200 / 200 Output Total 180 / 180 420 / 420 Balance -180 / -180 -220 / -220 Intake: IV Fluids 100 / 100 Zosyn 3.375 GM In 100 / 100 Dextrose 5% (Minibag+) 100 ML 100 ML @ 25 mls/hr IVPB Q8HR [facility] Rx#: [id number] Oral 0 / 0 100 / 100 Output: Urine 0 / 0 350 / 350 Estimated Blood Loss 60 / 60 Wound Drainage 120 / 120 70 / 70 Right Abdomen 120 / 120 70 / 70 Other: Meal NPO Percent of Meal Consumed 0% # Voids 1 # Bowel Movements 0 Weight 115.031 kg Patient Weight 11/07/16 23:59 Weight 115.031 kg - General physical appearance well developed, well nourished, no distress - Eyes PERRL, normal ocular movement - ENT normal pinna, normal nares, normal mucosa, atraumatic, normocephalic, CN 2-12 grossly intact - Neck Neck exam: trachea midline - Respiratory normal expansion, normal respiratory effort, clear to auscultation - Cardiovascular Cardiovascular exam: Present: RRR, no murmurs/rubs/gallops. Absent: JVD - Abdomen Abdomen: Present: bowel sounds present, soft Abdominal Tenderness: RUQ Additional Comments: Pavel drain in upper right quadrant is draining serosanguineous fluid. Minimal tenderness around drain otherwise nontender abdomen. - Integumentary no rash, no abnormal pigmentation - Neurologic CN 2-12 grossly intact, normal coordination, normal sensation - Musculoskeletal normal gait, normal posture - Psychiatric oriented to time, oriented to person, oriented to place, speech is normal, memory intact - Labs 11/07/16 05:24 11/07/16 05:24 Diabetes panel 11/07/16 Range/Units 05:24 Sodium 136 (136-145) mEq/L Potassium 3.4 L (3.5-4.5) mEq/L Chloride 101 (98-109) mEq/L Carbon Dioxide 28 (19-29) mEq/L BUN 20 (7-20) mg/dL Creatinine 1.32 H (0.57-1.11) mg/dL Glucose 122 H (70-99) mg/dL Calcium 8.6 (8.6-10.8) mg/dL AST 132 H (5-34) Units/L ALT 129 H (0-55) Units/L Alkaline Phosphatase 192 H (38-126) Units/L Albumin 2.3 L D (3.5-5.0) g/dL Calcium panel 11/07/16 Range/Units 05:24 Calcium 8.6 (8.6-10.8) mg/dL Albumin 2.3 L D (3.5-5.0) g/dL Pituitary panel 11/07/16 Range/Units 05:24 Sodium 136 (136-145) mEq/L Potassium 3.4 L (3.5-4.5) mEq/L Chloride 101 (98-109) mEq/L Carbon Dioxide 28 (19-29) mEq/L BUN 20 (7-20) mg/dL Creatinine 1.32 H (0.57-1.11) mg/dL Glucose 122 H (70-99) mg/dL Calcium 8.6 (8.6-10.8) mg/dL Adrenal panel 11/07/16 Range/Units 05:24 Sodium 136 (136-145) mEq/L Potassium 3.4 L (3.5-4.5) mEq/L Chloride 101 (98-109) mEq/L Carbon Dioxide 28 (19-29) mEq/L BUN 20 (7-20) mg/dL Creatinine 1.32 H (0.57-1.11) mg/dL Glucose 122 H (70-99) mg/dL Calcium 8.6 (8.6-10.8) mg/dL Total Bilirubin 1.2 (0.2-1.2) mg/dL AST 132 H (5-34) Units/L ALT 129 H (0-55) Units/L Alkaline Phosphatase 192 H (38-126) Units/L Albumin 2.3 L D (3.5-5.0) g/dL - VTE Documentation of Mechanical Device: Intermittent pneumatic compression device Consult Discharge Plan - Plan Referrals: Khanh Alonzo MD [Primary Care Provider] - Bharath Escobar MD [Partnered Physician] - (Laparoscopic cholecystectomy with laparoscopic lysis of adhesions for 50 minutes. Pavel drain evaluation/ log of output with possible removal.)
[2016-11-07 10:59] VITALS: BP 101/62
--- NOTE | 2016-11-07 11:17 | Discharge Summary ---
Date of Encounter: 11/07/16 Time of Encounter: 10:00 - Discharge Diagnosis (1) Acute cholecystitis Priority: Primary Status: Acute (2) Coronary artery disease Priority: Secondary Status: Chronic Qualifiers: Coronary Disease-Associated Artery/Lesion type: bypass graft [place] vs. transplanted heart: [place] heart Associated angina: without angina Qualified Code(s): I25.810 - Atherosclerosis of coronary artery bypass graft(s) without angina pectoris (3) Hypertension Priority: Secondary Status: Chronic Qualifiers: Hypertension type: essential hypertension Qualified Code(s): I10 - Essential (primary) hypertension (4) COPD (chronic obstructive pulmonary disease) Priority: Secondary Status: Chronic Qualifiers: COPD type: emphysema Emphysema type: unspecified Qualified Code(s): J43.9 - Emphysema, unspecified (5) DVT prophylaxis Priority: Secondary Status: Acute - Discharge Medications Prescriptions: Amoxicillin/Clavulanate [Augmentin] 875 mg PO BIDWM #10 tablet Home Medications: Aspirin 81 mg PO DAILY 03/16/15 [History] Metoprolol [Lopressor] 100 mg PO BID 03/16/15 [History] Isosorbide MONOnitrate (24 HR) [Imdur] 30 mg PO DAILY 11/05/16 [History] Naproxen Sodium [Aleve] 220 mg PO Q12H PRN 11/05/16 [History] Rosuvastatin Calcium 5 mg PO HS 11/05/16 [History] Vitamin B Complex 1 each PO DAILY 11/05/16 [History] hydroCHLOROthiazide [Hydrochlorothiazide] 25 mg PO DAILY 11/05/16 [History] Amoxicillin/Clavulanate [Augmentin] 875 mg PO BIDWM #10 tablet 11/07/16 [Rx] Allergies/Adverse Reactions: Allergies No Known Allergies Allergy (Verified 11/04/16 17:26) Procedures/tests Complete & Pending: Procedures Performed prior 72 hours Category Date Time Status US abdomen limited [US] Routine Exams 11/05/16 08:00 Completed - Notes to Outpatient Provider 1. Please continue by mouth antibiotic for 5 more days. (Augmentin 875mg bid x 5 days). 2. Please check CBC and CMP as outpatient in one week. Date of admission: 11/04/16 21:35 Primary care physician: Khanh Alonzo MD Discharging clinician: Brittny Tavarez Anticipated date of discharge: 11/07/16 - Patient Status Disposition: Home, Self-Care Condition: Fair Functional capacity at discharge: independent ambulation Overall status at discharge: patient is back to baseline - Discharge Instructions Instructions: [facility] Drain [facility] (DC) Follow Up With: Bharath Escboar MD [Partnered Physician] - (Laparoscopic cholecystectomy with laparoscopic lysis of adhesions for 50 minutes. Pavel drain evaluation/ log of output with possible removal.) Khanh Alonzo MD [Primary Care Provider] - - Diet and Activity Activity: increase activity as tolerated Diet: advance to your usual diet Interval History: Ms. Andino is a 71 year old female past medical history of coronary artery disease with CABG hypertension hyperlipidemia COPD non-oxygen dependent. According to the patient approximately 10 PM last night she ate a pizza and 2 hours later she began to experience abdominal pain and nausea. She described the pain 8/10 constant, occurring in right upper quadrant radiating to right chest, shoulder blades as well to pelvic region. Pain was wavelike, dull peaking to a sharp pain. She states she felt like her abdomen was distended and was full of gas however she was unable to belch or pass any flatus. She denies any fevers or diarrhea shortness of breath. Prior to this incident patient was at her normal state of health She presented to the ER with the above complaints. Upon arrival patient did have several episodes of emesis that were yellow in color. Lab work was obtained there was no leukocytosis lactate was [address] scan of abdomen suggestive of cholecystitis. Patient was given pain medications and antiemetics and IV fluids ER physician did speak with Dr. Escobar requested patient be admitted to medical services and surgical consult. Presently patient appears to be in pain. She complains of right upper quadrant pain. She feels that the morphine helped but did not last very long. Upon assessment patient's abdomen is tender right upper quadrant. Lung sounds are clear heart sounds S1-S2 with no rubs, gallops or murmurs noted no lower extreme edema. She is hemodynamically stable. Hospital course: Ms. Andino is a 71 year old female admitted as acute cholecystitis. Surgical consult was called, patient has a cholecystectomy yesterday. After surgery, patient did recover well, vitals are stable, no abdominal pain. Surgical cleared patient for discharge home. Patient with discharge home and follow-up with surgery as outpatient. I saw and examined the patient today. She is awake alert, oriented 3. No fever, no abdominal pain, no nausea or vomiting. Vitals are stable. She has a mild elevated WBC, creatinine, and liver enzymes, which is expected right after surgery. Patient was told to follow-up CBC and CMP as outpatient when she follow-up with surgery in the office. Patient is stable to discharge home. - Time Spent with Patient Total time spent providing and/or coordinating discharge services: 40 minutes Greater than 30 minutes - Constitutional Vitals: Temp Pulse Resp BP Pulse Ox 98.7 F 81 18 101/62 91 11/07/16 10:54 11/07/16 10:54 11/07/16 10:54 11/07/16 10:54 11/07/16 10:54 General appearance: Present: A&O X 3, pleasant, no acute distress - Head Head exam: Present: atraumatic, normocephalic - Eye Eye exam: Present: PERRL, conjuntiva pink, sclera anicteric Pupils: Present: PERRL - Neck Neck exam general surgery: Present: supple, trachea midline. Absent: lymphadenopathy - Respiratory Respiratory exam: Present: CTAB. Absent: accessory muscle use, rales, rhonchi, wheezes - Cardiovascular Cardiovascular exam: Present: RRR, +S1, +S2. Absent: diastolic murmur, gallop, rubs, systolic murmur - GI/Abdominal GI/Abdominal exam: Present: normal bowel sounds, soft, no peritoneal signs. Absent: distended, tenderness Additional comments: Surgical drainage is in place - Extremities Exam Extremities exam: Present: warm, radial pulses palpable and symetrical. Absent : calf tenderness, cyanotic, pedal edema - Neurological Exam Neurological exam: Present: CN II-XII intact, oriented X3, no focal deficits. Absent: pronater drift, facial droop, speech deficit - Skin Skin exam: Present: dry, intact - VTE Documentation of Mechanical Device: Intermittent pneumatic compression device
== END 2016-11-07 12:15 | disposition home or self-care (01) | DRG 418 ==
LOC: 3ANU 17:10 → EMEROO 17:10 → 3ANU 20:13 → SUATTDRO 21:35
PROVIDERS: ADMIT Internal Medicine; ATTEND Internal Medicine